=== PATIENT | female | born 1960 | race Caucasian/White ===

== ENCOUNTER → 2024-01-09 | Outpatient (CLI) | payer OTHER ==
--- NOTE | 2024-01-09 16:16 | HMCIMG ---
SCOLIOSIS 2-3VW REASON: SPONDYLOLISTHESIS OF LUMBAR REGION. COMPARISON: None TECHNIQUE: Scoliosis series was obtained. FINDINGS: There is minimal dextroscoliosis of thoracic spine with scoliotic angle of 2.60 degrees. There is minimal levoscoliosis of lumbar spine with scoliotic angle of 4 degrees. No loss of vertebral height is seen. IMPRESSION: Mild scoliosis. No loss of vertebral height is seen.
--- NOTE | 2024-01-09 16:22 | HMCIMG ---
LUMBAR W FLEXION/EXTENSION REASON: SPONDYLOLISTHESIS OF LUMBAR REGION. COMPARISON: None TECHNIQUE: 4 images of lumbar spine were obtained including the flexion and extension views. FINDINGS: Grade 1 anterolisthesis is seen at the L5-S1 level with disc space narrowing stable in reduction and extension views. No loss of vertebral height is seen. Large amount of fecal material is seen in the colon. Bilateral L5 pars defects are seen. IMPRESSION: Findings as described above.
== END | disposition home or self-care (01) ==
LOC: RAH 14:58
PROVIDERS: ATTEND Physical Medicine & Rehabilitation
DX: M43.17 Spondylolisthesis, lumbosacral region (principal); M48.07 Spinal stenosis, lumbosacral region; M41.9 Scoliosis, unspecified
CPT/HCPCS: 72082; 72114